=== PATIENT | female | born 1950 | race Two or more races ===

== ENCOUNTER 2017-05-25 09:22 | Outpatient (CLI) | payer OTHER | END 2017-05-25 09:27 | disposition home or self-care (01) | LOC: RX STUDY 09:22 | DX: R19.4 Change in bowel habit (principal); K44.9 Diaphragmatic hernia without obstruction or gangrene; Z83.71 Family history of colonic polyps; R12 Heartburn; K64.8 Other hemorrhoids; K31.7 Polyp of stomach and duodenum; K57.30 Diverticulosis of large intestine without perforation or abscess without bleeding; E78.4 Other hyperlipidemia ==